=== PATIENT | male | born 1965 | race Caucasian/White ===

== ENCOUNTER 2020-10-16 07:33 | Observation (INO) | payer BC ==
[2020-10-16] MEDS ORDERED: Sodium Chloride 0.9% 10 ML Syringe FLUSH PRN (07:50)
[2020-10-16] MEDS ORDERED: Alum Hydrox/Mag Hydrox/Simeth 30 ML, Lidocaine 2% 15 ML PO ONE ×2 (08:00)
[2020-10-16] MEDS ORDERED: Aspirin 81 MG Tab.Chew PO ONE (08:02)
--- NOTE | 2020-10-16 08:10 | EDM.PDOC ---
ED HPI GENERAL MEDICAL PROBLEM - General Chief Complaint: Chest Pain Stated Complaint: CHEST PAIN Time Seen by Provider: 10/16/20 08:05 Source of Information: Reports: Patient History Limitations: Reports: No Limitations - History of Present Illness INITIAL COMMENTS - FREE TEXT/NARRATIVE: 55 YO WM PRESENTS TO ER COMPLAINING OF SUBSTERNAL CHEST PAIN WHICH BEGAN THIS AM. PT REPORTS HE WOKE THIS AM FEELING FINE BUT TOOK HIS MORNING MEDICATIONS AND DEVELOPED BURNING SENSATION AND CHEST PRESSURE. PT DENIES ASSOCIATED SHORTNESS OF BREATH, DIAPHORESIS,OR DIZZINESS. PT REPORTS FEELING NAUSEA BUT IT'S RELIEVED WITH BELCHING. PT WITH PMH OF HYPERTENSION, HYPERLIPIDEMIA AND OBESITY. PT WITH FAMILY HISTORY OF AMI (DAD AGE 57). PT DENIES EXERCISE INTOLERANCE. PT REPORTS DAILY ALCOHOL USE BUT DENIES TOBACCO USE. PT DENIES ANY KNOWN COVID EXPOSURES AND REPORTS HAVING COVID 11/2019. Onset: Today, Sudden Location: Reports: Chest Quality: Reports: Burning, Pressure Severity: Moderate Improves with: Reports: None Worsens with: Reports: None Associated Symptoms: Reports: No Other Symptoms, Chest Pain. Denies: Cough, Diaphoresis, Fever/Chills, Nausea/Vomiting, Shortness of Breath Middle Chest Pain Score (Numeric/FACES): 5 - Related Data Allergies Allergy/AdvReac Type Severity Reaction Status Date / Time lisinopril Allergy Cough Verified 10/16/20 08:01 Home Meds: Home Meds Aspirin [Aspirin EC] 81 mg PO DAILY 10/16/20 [History] Cetirizine [ZyrTEC] 10 mg PO DAILY 10/16/20 [History] Gabapentin [Neurontin] 600 mg PO TID 10/16/20 [History] Losartan Potassium [Cozaar] 100 mg PO DAILY 10/16/20 [History] Montelukast [Singulair] 10 mg PO BEDTIME 10/16/20 [History] Omeprazole 20 mg PO ACBREAKFAST 10/16/20 [History] Polyvinyl Alcohol/Povidone/Pf [Refresh Classic Eye Drops] 1 each EYEBOTH ASDIRECTED PRN 10/16/20 [History] Sertraline HCl [Zoloft] 50 mg PO DAILY 10/16/20 [History] Simvastatin [Zocor] 20 mg PO BEDTIME 10/16/20 [History] hydroCHLOROthiazide [Hydrochlorothiazide] 12.5 mg PO DAILY 10/16/20 [History] Social & Family History - Tobacco Use Tobacco Use Status *Q: Former Tobacco User Used Tobacco, but Quit: Yes Month/Year Tobacco Last Used: 04/19 - Caffeine Use Caffeine Use: Reports: Soda - Alcohol Use Days Per Week of Alcohol Use: 7 Number of Drinks Per Day: 3 Total Drinks Per Week: 21 - Recreational Drug Use Recreational Drug Use: No ED ROS GENERAL - Review of Systems Review Of Systems: See Below Constitutional: Reports: No Symptoms HEENT: Reports: No Symptoms Respiratory: Reports: No Symptoms Cardiovascular: Reports: Chest Pain, Blood Pressure Problem Endocrine: Reports: No Symptoms GI/Abdominal: Reports: No Symptoms, Nausea. Denies: Vomiting : Reports: No Symptoms Musculoskeletal: Reports: No Symptoms Skin: Reports: No Symptoms Neurological: Reports: No Symptoms Psychiatric: Reports: No Symptoms Hematologic/Lymphatic: Reports: No Symptoms Immunologic: Reports: No Symptoms ED EXAM, GENERAL - Physical Exam Exam: See Below Exam Limited By: No Limitations General Appearance: Alert, WD/WN, No Apparent Distress Head: Atraumatic, Normocephalic Neck: Normal Inspection, Supple, Non-Tender, Full Range of Motion Respiratory/Chest: No Respiratory Distress, Lungs Clear, Normal Breath Sounds, No Accessory Muscle Use, Chest Non-Tender Cardiovascular: Normal Peripheral Pulses, Regular Rate, Rhythm, No Edema, No Gallop, No JVD, No Murmur, No Rub GI/Abdominal: Normal Bowel Sounds, Soft, Non-Tender, No Organomegaly, No Distention, No Abnormal Bruit, No Mass Back Exam: Normal Inspection, Full Range of Motion, NT Extremities: Normal Inspection, Normal Range of Motion, Non-Tender, Normal Capillary Refill, No Pedal Edema Neurological: Alert, Oriented, CN II-XII Intact, Normal Cognition, Normal Gait, Normal Reflexes, No Motor/Sensory Deficits Psychiatric: Normal Affect, Normal Mood Skin Exam: Warm, Dry, Intact, Normal Color, No Rash #1 Interpretation EKG Date: 10/16/20 Time: 07:40 Rhythm: NSR Rate (Beats/Min): 81 [place]: Normal QRS: RBBB ST-T: Normal QT: Normal Comparison: NA - No Prior EKG Course - Vital Signs Last Recorded V/S: Last Vital Signs Temp 97.8 F 10/16/20 07:53 Pulse 79 10/16/20 08:30 Resp 16 10/16/20 08:30 BP 151/93 H 10/16/20 08:30 Pulse Ox 95 10/16/20 08:30 - Orders/Labs/Meds Orders: Active Orders 24 hr Category Date Time Status Peripheral IV Care [RC] . DIRECTED Care 10/16/20 07:53 Active Sodium Chloride 0.9% [Saline Flush] Med 10/16/20 07:50 Active 10 ml FLUSH Q8HR PRN Peripheral IV Insertion Adult [OM.PC] Routine Oth 10/16/20 07:50 Ordered Medication Orders Sodium Chloride (Sodium Chloride 0.9% 10 Ml Syringe) 10 ml FLUSH Q8HR PRN PRN Reason: keep vein open Last Admin: 10/16/20 07:40 Dose: 10 ml Documented by: JOSE JUAN Labs: Laboratory Tests 10/16/20 10/16/20 Range/Units 07:30 07:30 WBC 6.91 (5.00-10.00) 10^3/uL RBC 4.90 (4.50-6.00) 10^6/uL Hgb 14.5 (13.0-17.0) g/dL Hct 43.5 (40.0-52.0) % MCV 88.8 (82.0-92.0) fL MCH 29.6 (27.0-31.0) pg MCHC 33.3 (32.0-36.0) g/dL RDW 13.8 (11.5-14.5) % Plt Count 172 (150-400) 10^3/uL MPV 11.0 H (7.4-10.4) fL Immature Gran % (Auto) 1.0 (0.0-5.0) % Neut % (Auto) 65.3 (50.0-70.0) % Lymph % (Auto) 24.6 (20.0-40.0) % [place] % (Auto) 7.4 (2.0-8.0) % Eos % (Auto) 1.3 (1.0-3.0) % Baso % (Auto) 0.4 (0.0-1.0) % Neut # (Auto) 4.51 (2.50-7.00) 10^3/uL Lymph # (Auto) 1.70 (1.00-4.00) 10^3/uL [place] # (Auto) 0.51 (0.10-0.80) 10^3/uL Eos # (Auto) 0.09 L (0.10-0.30) 10^3/uL Baso # (Auto) 0.03 (0.00-0.10) 10^3/uL Immature Gran # (Auto) 0.07 (0.00-0.50) 10^3/uL Sodium 140 (136-145) mmol/L Potassium 3.6 (3.5-5.1) mmol/L Chloride 102 (98-107) mmol/L Carbon Dioxide 26.7 (21.0-32.0) mmol/L Anion Gap 14.9 (5-15) mmol/L BUN 13 (7-18) mg/dL Creatinine 0.95 (0.51-1.17) mg/dL Est Cr Clr Drug Dosing 96.95 mL/min Estimated GFR (MDRD) > 60 mL/min Glucose 100 (70-140) mg/dL Calcium 8.3 L (8.7-10.3) mg/dL Total Bilirubin 0.6 (0.2-1.0) mg/dL AST 28 (15-37) U/L ALT 49 (14-63) U/L Alkaline Phosphatase 66 (46-116) U/L Creatine Kinase 153 (26-276) U/L CK-MB (CK-2) 1.95 (0.00-3.60) ng/mL Troponin I High Sens 7.400 (0-76.000) pg/mL Total Protein 7.6 (6.4-8.2) g/dL Albumin 3.85 (3.40-5.00) g/dL Meds: Medications Generic Name Dose Route Start Last Admin Trade Name Freq PRN Reason Stop Dose Admin Sodium Chloride 10 ml 10/16/20 07:50 10/16/20 07:40 Sodium Chloride 0.9% 10 Ml Syringe FLUSH 10 ml Q8HR PRN Administration keep vein open Discontinued Medications Generic Name Dose Route Start Last Admin Trade Name Freq PRN Reason Stop Dose Admin Aspirin 324 mg 10/16/20 08:02 10/16/20 08:08 Aspirin 81 Mg Tab.Chew PO 10/16/20 08:03 324 mg ONETIME ONE Administration Al Hydroxide/Mg Hydroxide 30 0 ml 10/16/20 08:00 10/16/20 08:09 ml/ Lidocaine HCl 15 ml PO 10/16/20 08:01 45 ml ONETIME ONE Administration Nitroglycerin 1 gm 10/16/20 08:21 10/16/20 08:29 Nitroglycerin 2% Oint 1 Gm Ud Packet TOP 10/16/20 08:22 1 gm ONETIME ONE Administration - Radiology Interpretation Free Text/Narrative:: CXR-NAD; BORDERLINE CM, BIBASILAR ATELECTASIS Departure - Departure Time of Disposition: 09:31 Disposition: Refer to Observation Condition: Fair Clinical Impression: Chest pain Qualifiers: Chest pain type: unspecified Qualified Code(s): R07.9 - Chest pain, unspecified Referrals: Sabrina Douglas, [employer] [Primary Care Provider] - Forms: ED Department Discharge Sepsis Event Note (ED) - Evaluation Sepsis Screening Result: No Definite Risk - Focused Exam Vital Signs: Vital Signs Temp Pulse Resp BP Pulse Ox 10/16/20 08:30 79 16 151/93 H 95 10/16/20 08:15 82 16 140/88 93 L 10/16/20 08:00 88 18 150/92 H 93 L 10/16/20 07:53 97.8 F 83 23 H 148/92 H 96 10/16/20 07:45 82 16 149/89 H 96 10/16/20 07:43 97.8 F 83 23 H 148/92 H 96 - My Orders Last 24 Hours: My Active Orders 10/16/20 07:50 Sodium Chloride 0.9% [Saline Flush] 10 ml FLUSH Q8HR PRN Peripheral IV Insertion Adult [OM.PC] Routine 10/16/20 07:53 Peripheral IV Care [RC] . DIRECTED - Assessment/Plan Last 24 Hours: My Active Orders 10/16/20 07:50 Sodium Chloride 0.9% [Saline Flush] 10 ml FLUSH Q8HR PRN Peripheral IV Insertion Adult [OM.PC] Routine 10/16/20 07:53 Peripheral IV Care [RC] . DIRECTED Assessment:: 1. ATYPICAL CHEST PAIN Plan: 1. ADMIT TO MEDICINE ETHEL RUIZ ACCEPTING-OBSERVATION @0915 2. ASA/NITRO 3. SUPPORTIVE CARE 4. REPEAT TROP I Q6 X3
--- NOTE | 2020-10-16 08:14 | CR ---
[id number] RAD/RAD Chest PA or AP 1V EXAM: FRONTAL CHEST INDICATION: CHEST PAIN. COMPARISON: None. DISCUSSION: Borderline heart size without evidence of edema. Mild basilar atelectasis. No infiltrates are identified. No effusions. IMPRESSION: 1. Mild bibasilar atelectasis. Mario Plasencia MD 10/16/20 0877 Thank you for allowing us to participate in the care of your patient.
[2020-10-16] MEDS ORDERED: Nitroglycerin 2% Oint 1 GM UD Packet TOP ONE (08:21)
[2020-10-16 08:51] LABS: ANION GAP 14.9 mmol/L (5-15); CHLORIDE,CL 102 mmol/L (98-107); SODIUM,NA 140 mmol/L (136-145)
--- NOTE | 2020-10-16 11:40 | PCM.HP.2 ---
H&P History of Present Illness - General Date of Service: 10/16/20 Admit Problem/Dx: Admission Diagnosis/Problem Admission Diagnosis/Problem Chest pain Source of Information: Patient History Limitations: Reports: Other (lack of EMR from [facility]) Middle Chest Pain Score (Numeric/FACES): 5 - Related Data Allergies/Adverse Reactions: Allergies Allergy/AdvReac Type Severity Reaction Status Date / Time lisinopril Allergy Cough Verified 10/16/20 10:05 Home Medications: Home Meds Aspirin [Aspirin EC] 81 mg PO DAILY 10/16/20 [History] Cetirizine [ZyrTEC] 10 mg PO DAILY 10/16/20 [History] Gabapentin [Neurontin] 600 mg PO TID 10/16/20 [History] Losartan Potassium [Cozaar] 100 mg PO DAILY 10/16/20 [History] Montelukast [Singulair] 10 mg PO BEDTIME 10/16/20 [History] Omeprazole 20 mg PO ACBREAKFAST 10/16/20 [History] Polyvinyl Alcohol/Povidone/Pf [Refresh Classic Eye Drops] 1 each EYEBOTH ASDIRECTED PRN 10/16/20 [History] Sertraline HCl [Zoloft] 50 mg PO DAILY 10/16/20 [History] Simvastatin [Zocor] 20 mg PO BEDTIME 10/16/20 [History] hydroCHLOROthiazide [Hydrochlorothiazide] 12.5 mg PO DAILY 10/16/20 [History] Social & Family History - Tobacco Use Tobacco Use Status *Q: Former Tobacco User Used Tobacco, but Quit: Yes Month/Year Tobacco Last Used: 04/19 - Caffeine Use Caffeine Use: Reports: Soda - Alcohol Use Days Per Week of Alcohol Use: 7 Number of Drinks Per Day: 3 Total Drinks Per Week: 21 - Recreational Drug Use Recreational Drug Use: No H&P Review of Systems - Review of Systems: Review Of Systems: See Below General: Reports: No Symptoms HEENT: Reports: No Symptoms Pulmonary: Reports: No Symptoms Cardiovascular: Reports: No Symptoms Gastrointestinal: Reports: Other (epigastric burning, much improved. ). Denies: Abdominal Pain, Diarrhea, Difficulty Swallowing Genitourinary: Reports: No Symptoms Musculoskeletal: Reports: No Symptoms Skin: Reports: No Symptoms Psychiatric: Reports: No Symptoms Neurological: Reports: No Symptoms Hematologic/Lymphatic: Reports: No Symptoms Immunologic: Reports: No Symptoms Exam - Exam Exam: See Below - Vital Signs Vital Signs: Last Vital Signs Temp 97.8 F 10/16/20 07:53 Pulse 91 10/16/20 09:30 Resp 20 10/16/20 09:30 BP 129/74 10/16/20 09:30 Pulse Ox 91 L 10/16/20 09:30 Weight: 280 lb - Exam Quality Assessment: No: Supplemental Oxygen General: Alert, Oriented, 4 HEENT: PERRLA, Hearing Intact, Mucosa Moist & [place], Nares Patent, Normal Nasal Septum, Posterior Pharynx Clear, Conjunctiva Clear, EOMI, EACs Clear, TMs Clear Neck: Supple, Trachea Midline, 2 Lungs: Clear to Auscultation, Normal Respiratory Effort Cardiovascular: Regular Rate, Regular Rhythm GI/Abdominal Exam: Soft, Other (large body habitus) (Male) Exam: Deferred Back Exam: Normal Inspection Extremities: No: Pedal Edema Peripheral Pulses: 2+: Radial (L), Radial (R) Skin: Warm, Dry, Intact Neurological: Cranial Nerves Intact, Reflexes Equal Bilateral Neuro Extensive - Mental Status: Alert, Oriented x3, Normal Mood/Affect, Normal Cognition Neuro Extensive - Motor, Sensory, Reflexes: CN II-XII Intact, Normal Gait, Normal Reflexes Psychiatric: Alert, Normal Affect, Normal Mood - Patient Data Lab Results Last 24 hrs: Laboratory Results - last 24 hr 10/16/20 10/16/20 10/16/20 Range/Units 07:30 07:30 10:00 WBC 6.91 (5.00-10.00) 10^3/uL RBC 4.90 (4.50-6.00) 10^6/uL Hgb 14.5 (13.0-17.0) g/dL Hct 43.5 (40.0-52.0) % MCV 88.8 (82.0-92.0) fL MCH 29.6 (27.0-31.0) pg MCHC 33.3 (32.0-36.0) g/dL RDW 13.8 (11.5-14.5) % Plt Count 172 (150-400) 10^3/uL MPV 11.0 H (7.4-10.4) fL Immature Gran % (Auto) 1.0 (0.0-5.0) % Neut % (Auto) 65.3 (50.0-70.0) % Lymph % (Auto) 24.6 (20.0-40.0) % [place] % (Auto) 7.4 (2.0-8.0) % Eos % (Auto) 1.3 (1.0-3.0) % Baso % (Auto) 0.4 (0.0-1.0) % Neut # (Auto) 4.51 (2.50-7.00) 10^3/uL Lymph # (Auto) 1.70 (1.00-4.00) 10^3/uL [place] # (Auto) 0.51 (0.10-0.80) 10^3/uL Eos # (Auto) 0.09 L (0.10-0.30) 10^3/uL Baso # (Auto) 0.03 (0.00-0.10) 10^3/uL Immature Gran # (Auto) 0.07 (0.00-0.50) 10^3/uL Sodium 140 (136-145) mmol/L Potassium 3.6 (3.5-5.1) mmol/L Chloride 102 (98-107) mmol/L Carbon Dioxide 26.7 (21.0-32.0) mmol/L Anion Gap 14.9 (5-15) mmol/L BUN 13 (7-18) mg/dL Creatinine 0.95 (0.51-1.17) mg/dL Est Cr Clr Drug Dosing 96.95 mL/min Estimated GFR (MDRD) > 60 mL/min Glucose 100 (70-140) mg/dL Calcium 8.3 L (8.7-10.3) mg/dL Total Bilirubin 0.6 (0.2-1.0) mg/dL AST 28 (15-37) U/L ALT 49 (14-63) U/L Alkaline Phosphatase 66 (46-116) U/L Creatine Kinase 153 (26-276) U/L CK-MB (CK-2) 1.95 (0.00-3.60) ng/mL Troponin I High Sens 7.400 (0-76.000) pg/mL Total Protein 7.6 (6.4-8.2) g/dL Albumin 3.85 (3.40-5.00) g/dL SARS CoV-2 RNA Rapid KARTHIK Negative (NEGATIVE) Result Diagrams: 10/16/20 07:30 10/16/20 07:30 Sepsis Event Note - Evaluation Sepsis Screening Result: No Definite Risk - Focused Exam Vital Signs: Vital Signs Temp Pulse Resp BP Pulse Ox 10/16/20 09:30 91 20 129/74 91 L 10/16/20 09:15 86 20 131/75 90 L 10/16/20 09:00 84 18 130/86 93 L 10/16/20 08:45 85 23 H 138/87 94 L 10/16/20 08:30 79 16 151/93 H 95 10/16/20 08:15 82 16 140/88 93 L 10/16/20 08:00 88 18 150/92 H 93 L 10/16/20 07:53 97.8 F 83 23 H 148/92 H 96 10/16/20 07:45 82 16 149/89 H 96 10/16/20 07:43 97.8 F 83 23 H 148/92 H 96 Problem List Initiated/Reviewed/Updated: Yes Orders Last 24hrs: Active Orders 24 hr Category Date Time Status Patient Status Manage Transfer [TRANSFER] Routine ADT 10/16/20 09:34 Active Patient Status [ADT] Routine ADT 10/16/20 09:35 Active Oxygen Therapy [RC] PRN Care 10/16/20 09:35 Active Peripheral IV Care [RC] . DIRECTED Care 10/16/20 07:53 Active VTE/DVT Education [RC] PER UNIT ROUTINE Care 10/16/20 09:35 Active Vital Signs [RC] Q4H Care 10/16/20 09:35 Active Sodium Chloride 0.9% [Saline Flush] Med 10/16/20 07:50 Active 10 ml FLUSH Q8HR PRN Peripheral IV Insertion Adult [OM.PC] Routine Oth 10/16/20 07:50 Ordered Resuscitation Status Routine Resus Stat 10/16/20 09:35 Ordered Medication Orders Sodium Chloride (Sodium Chloride 0.9% 10 Ml Syringe) 10 ml FLUSH Q8HR PRN PRN Reason: keep vein open Last Admin: 10/16/20 07:40 Dose: 10 ml Documented by: JOSE JUAN Assessment/Plan Comment:: History of Present Illness Mr Gu in a 55 y/o that was admitted into OBS status for r/o UT after he came into ED with substernal c/p. He woke up this am in his normal state of health and took his am meds and note chest pressure with epigastic and throat burning sensation. No associated SOB, diaphoresis or dizziness however denoted nausea alleviated upon belching. With family of hx of UT in father at same age as patient along with other risk factors of CV dz he was admitted into tele status. ED course: GI cocktail--to improvemnt, Nitro with improvement, EKG although no ACS concerns, changes from older EKG include, Neg Trop Primary Hosp Problems --Atypical chest pain, r/o UT--low suspect --Suspect esophageal spasms CV risk factors Obesity HTN HLD Dispositon; --admit to OBS, tele, repeat cardiac biomarker at 1400 --With family hx of early cardiac dz it may be prudent to cont ASA as Primary prevention however without ability to determine ASCVD risk uncertain if >10% which is the threshold of likely patient benefit. Also I feel his sx GI related in which ASA may be culprit. Cont PPI and DC provider to determine in ongoing ASA therapy is warrented. --Discussed lifestyle modications, wt, bp, lipids etc. - Mortality Measure Prognosis:: Good
[2020-10-16] MEDS ORDERED: Carboxymethylcellulose Sodium 0.5% Ophth Soln 15 ML Bottle EYEBOTH PRN ×2 (12:31→12:45)
[2020-10-16] MEDS ORDERED: Gabapentin 300 MG Cap PO SCH (14:00)
--- NOTE | 2020-10-16 16:50 | PCM.DCSUM1 ---
Discharge Summary - Hospital Course Free Text/Narrative:: Date of admission: 10/16/20 Date of discharge: 10/16/20 Admission diagnoses: # Atypical chest pain, R/O [place] Discharge diagnoses: # Hypertension - continue HCTZ 25mg and losartan 100mg # Dyslipidemia - continue simvastatin 20mg PO daily # GERD - continue omeprazole 20mg PO daily # Peripheral neuropathy - continue gabapentin 600mg PO TID # Generalized anxiety disorder - sertraline 50mg PO daily # Obstructive sleep apnea # Obesity # Family history of heart disease - continue aspirin 81mg PO daily Hospital course: HPI: Mr Gu in a 55 y/o that is in the [facility] camping and woke up with substernal chest pain with epigastic and burning sensation in the throat. No associated SOB, diaphoresis or dizziness however patient experienced nausea alleviated upon belching. Patient has positive family history of [place] in his father at a similar age. Cardiac risk factors of HTN, HLD, obesity. ED course: Patient given a GI cocktail with improvement in symptoms, Nitro paste with improvement, EKG indicates incomplete RBBB, neg initial Trop. Patient was admitted to [facility] with telemetry, repeat troponin. 10/16/20: Patient feeling well, sitting up in the recliner in street clothes playing cards. Denies chest pain, shortness of breath, nausea. Headache resolving after removal of nitro paste. VSS. No changes in cardiac rhythm on telemetry. Troponin negative x 2, suspect GI etiology. No abnormalities noted on exam. Patient requesting to be discharged home. Discharge and follow-up recommendations: - Discharge to home per self care - New medications at discharge: No new medications. Continue current home medications - Follow-up with PCP at [facility] next week for hospitalization follow-up. - Discharge Data Discharge Date: 10/16/20 Discharge Disposition: Home, Self-Care 01 Condition: Good - Referral to Home Health Primary Care Physician: Sabrina Douglas NP - Patient Instructions Diet: Usual Diet as Tolerated Diet, Other: Avoid triggers for GERD Driving: May Drive Today Showering/Bathing: May Shower - Discharge Plan *PRESCRIPTION DRUG MONITORING PROGRAM REVIEWED*: Not Applicable *COPY OF PRESCRIPTION DRUG MONITORING REPORT IN PATIENT SOBIA: Not Applicable Home Medications: Home Meds Aspirin [Aspirin EC] 81 mg PO DAILY 10/16/20 [History] Cetirizine [ZyrTEC] 10 mg PO DAILY 10/16/20 [History] Gabapentin [Neurontin] 600 mg PO TID 10/16/20 [History] Losartan Potassium [Cozaar] 100 mg PO DAILY 10/16/20 [History] Montelukast [Singulair] 10 mg PO BEDTIME 10/16/20 [History] Omeprazole 20 mg PO ACBREAKFAST 10/16/20 [History] Polyvinyl Alcohol/Povidone/Pf [Refresh Classic Eye Drops] 1 each EYEBOTH ASDIRECTED PRN 10/16/20 [History] Sertraline HCl [Zoloft] 50 mg PO DAILY 10/16/20 [History] Simvastatin [Zocor] 20 mg PO BEDTIME 10/16/20 [History] hydroCHLOROthiazide [Hydrochlorothiazide] 12.5 mg PO DAILY 10/16/20 [History] Oxygen Therapy Mode: Room Air Referrals: Sabrina Douglas, [employer] [Primary Care Provider] - (Follow up with PCP at [facility] next week.) - Discharge Summary/Plan Comment DC Time >30 min.: Yes Total # of Minutes for Discharge Time: 35 - General Info Date of Service: 10/16/20 Functional Status: Reports: Pain Controlled, Tolerating Diet. Denies: New Symptoms - Review of Systems General: Reports: No Symptoms HEENT: Reports: No Symptoms Pulmonary: Reports: No Symptoms. Denies: Shortness of Breath Cardiovascular: Reports: No Symptoms. Denies: Chest Pain, Palpitations, Edema Gastrointestinal: Reports: No Symptoms. Denies: Nausea Genitourinary: Reports: No Symptoms Musculoskeletal: Reports: No Symptoms Skin: Reports: No Symptoms Neurological: Reports: No Symptoms Psychiatric: Reports: No Symptoms - Patient Data Vitals - Most Recent: Last Vital Signs Temp 98.4 F 10/16/20 15:00 Pulse 82 10/16/20 15:00 Resp 16 10/16/20 15:00 BP 109/62 10/16/20 15:00 Pulse Ox 96 10/16/20 15:00 Weight - Most Recent: 178 lb 14.4 oz I&O - Last 24 hours: Intake & Output 10/16/20 10/16/20 10/16/20 06:59 14:59 22:59 Intake Total 420 Balance 420 Lab Results - Last 24 hrs: Laboratory Results - last 24 hr 10/16/20 10/16/20 10/16/20 Range/Units 07:30 07:30 10:00 WBC 6.91 (5.00-10.00) 10^3/uL RBC 4.90 (4.50-6.00) 10^6/uL Hgb 14.5 (13.0-17.0) g/dL Hct 43.5 (40.0-52.0) % MCV 88.8 (82.0-92.0) fL MCH 29.6 (27.0-31.0) pg MCHC 33.3 (32.0-36.0) g/dL RDW 13.8 (11.5-14.5) % Plt Count 172 (150-400) 10^3/uL MPV 11.0 H (7.4-10.4) fL Immature Gran % (Auto) 1.0 (0.0-5.0) % Neut % (Auto) 65.3 (50.0-70.0) % Lymph % (Auto) 24.6 (20.0-40.0) % [place] % (Auto) 7.4 (2.0-8.0) % Eos % (Auto) 1.3 (1.0-3.0) % Baso % (Auto) 0.4 (0.0-1.0) % Neut # (Auto) 4.51 (2.50-7.00) 10^3/uL Lymph # (Auto) 1.70 (1.00-4.00) 10^3/uL [place] # (Auto) 0.51 (0.10-0.80) 10^3/uL Eos # (Auto) 0.09 L (0.10-0.30) 10^3/uL Baso # (Auto) 0.03 (0.00-0.10) 10^3/uL Immature Gran # (Auto) 0.07 (0.00-0.50) 10^3/uL Sodium 140 (136-145) mmol/L Potassium 3.6 (3.5-5.1) mmol/L Chloride 102 (98-107) mmol/L Carbon Dioxide 26.7 (21.0-32.0) mmol/L Anion Gap 14.9 (5-15) mmol/L BUN 13 (7-18) mg/dL Creatinine 0.95 (0.51-1.17) mg/dL Est Cr Clr Drug Dosing 96.95 mL/min Estimated GFR (MDRD) > 60 mL/min Glucose 100 (70-140) mg/dL Calcium 8.3 L (8.7-10.3) mg/dL Total Bilirubin 0.6 (0.2-1.0) mg/dL AST 28 (15-37) U/L ALT 49 (14-63) U/L Alkaline Phosphatase 66 (46-116) U/L Creatine Kinase 153 (26-276) U/L CK-MB (CK-2) 1.95 (0.00-3.60) ng/mL Troponin I High Sens 7.400 (0-76.000) pg/mL Total Protein 7.6 (6.4-8.2) g/dL Albumin 3.85 (3.40-5.00) g/dL SARS CoV-2 RNA Rapid KARTHIK Negative (NEGATIVE) 10/16/20 Range/Units 14:00 WBC (5.00-10.00) 10^3/uL RBC (4.50-6.00) 10^6/uL Hgb (13.0-17.0) g/dL Hct (40.0-52.0) % MCV (82.0-92.0) fL MCH (27.0-31.0) pg MCHC (32.0-36.0) g/dL RDW (11.5-14.5) % Plt Count (150-400) 10^3/uL MPV (7.4-10.4) fL Immature Gran % (Auto) (0.0-5.0) % Neut % (Auto) (50.0-70.0) % Lymph % (Auto) (20.0-40.0) % [place] % (Auto) (2.0-8.0) % Eos % (Auto) (1.0-3.0) % Baso % (Auto) (0.0-1.0) % Neut # (Auto) (2.50-7.00) 10^3/uL Lymph # (Auto) (1.00-4.00) 10^3/uL [place] # (Auto) (0.10-0.80) 10^3/uL Eos # (Auto) (0.10-0.30) 10^3/uL Baso # (Auto) (0.00-0.10) 10^3/uL Immature Gran # (Auto) (0.00-0.50) 10^3/uL Sodium (136-145) mmol/L Potassium (3.5-5.1) mmol/L Chloride (98-107) mmol/L Carbon Dioxide (21.0-32.0) mmol/L Anion Gap (5-15) mmol/L BUN (7-18) mg/dL Creatinine (0.51-1.17) mg/dL Est Cr Clr Drug Dosing mL/min Estimated GFR (MDRD) mL/min Glucose (70-140) mg/dL Calcium (8.7-10.3) mg/dL Total Bilirubin (0.2-1.0) mg/dL AST (15-37) U/L ALT (14-63) U/L Alkaline Phosphatase (46-116) U/L Creatine Kinase (26-276) U/L CK-MB (CK-2) (0.00-3.60) ng/mL Troponin I High Sens < 4.000 (0-76.000) pg/mL Total Protein (6.4-8.2) g/dL Albumin (3.40-5.00) g/dL SARS CoV-2 RNA Rapid KARTHIK (NEGATIVE) Med Orders - Current: Current Medications Artificial Tears (Carboxymethylcellulose Sodium 0.5% Ophth Soln 15 Ml Bottle) 0 ml EYEBOTH Q2H PRN PRN Reason: Dry Eyes Aspirin (Aspirin 81 Mg Tab.Ec) 81 mg PO DAILY [facility] Cetirizine HCl (Cetirizine 10 Mg Tab) 10 mg PO DAILY [facility] Gabapentin (Gabapentin 300 Mg Cap) 600 mg PO TID [facility] Last Admin: 10/16/20 15:20 Dose: 600 mg Documented by: Hydrochlorothiazide (Hydrochlorothiazide 12.5 Mg Cap) 12.5 mg PO DAILY [facility] Losartan Potassium (Losartan 50 Mg Tab) 100 mg PO DAILY [facility] Montelukast Sodium (Montelukast 10 Mg Tab) 10 mg PO BEDTIME [facility] Omeprazole (Omeprazole 20 Mg Cap.Cr) 20 mg PO ACBREAKFAST [facility] Sertraline HCl (Sertraline 50 Mg Tab) 50 mg PO DAILY [facility] Simvastatin (Simvastatin 20 Mg Tab) 20 mg PO BEDTIME [facility] Discontinued Medications Artificial Tears (Carboxymethylcellulose Sodium 0.5% Ophth Soln 15 Ml Bottle) 0 ml EYEBOTH ASDIRECTED PRN PRN Reason: Dry Eyes Aspirin (Aspirin 81 Mg Tab.Chew) 324 mg PO ONETIME ONE Stop: 10/16/20 08:03 Last Admin: 10/16/20 08:08 Dose: 324 mg Documented by: Al Hydroxide/Mg Hydroxide 30 (ml/ Lidocaine HCl 15 ml) 0 ml PO ONETIME ONE Stop: 10/16/20 08:01 Last Admin: 10/16/20 08:09 Dose: 45 ml Documented by: Nitroglycerin (Nitroglycerin 2% Oint 1 Gm Ud Packet) 1 gm TOP ONETIME ONE Stop: 10/16/20 08:22 Last Admin: 10/16/20 08:29 Dose: 1 gm Documented by: Sodium Chloride (Sodium Chloride 0.9% 10 Ml Syringe) 10 ml FLUSH Q8HR PRN PRN Reason: keep vein open Last Admin: 10/16/20 07:40 Dose: 10 ml Documented by: - Exam Quality Assessment: Denies: Supplemental Oxygen General: Reports: Alert, Oriented, Cooperative HEENT: Reports: Pupils Equal, Pupils Reactive, EOMI, Mucous Membr. Moist/[place] Neck: Reports: Supple Lungs: Reports: Clear to Auscultation, Normal Respiratory Effort (70) Cardiovascular: Reports: Regular Rate, Regular Rhythm, No Murmurs GI/Abdominal Exam: Normal Bowel Sounds (Male) Exam: Deferred Back Exam: Reports: Full Range of Motion Extremities: Normal Inspection, No Pedal Edema Skin: Reports: Warm, Dry, Intact Neurological: Reports: No New Focal Deficit Psy/Mental Status: Reports: Alert, Normal Affect, Normal Mood
[2020-10-16] MEDS ORDERED: Montelukast 10 MG Tab PO SCH (21:00)
[2020-10-16] MEDS ORDERED: Simvastatin 20 MG Tab PO SCH (21:00)
[2020-10-17] MEDS ORDERED: Omeprazole 20 MG Cap.CR PO SCH (07:30)
[2020-10-17] MEDS ORDERED: Cetirizine 10 MG Tab PO SCH (09:00)
[2020-10-17] MEDS ORDERED: Sertraline 50 MG Tab PO SCH (09:00)
[2020-10-17] MEDS ORDERED: Aspirin 81 MG Tab.EC PO SCH (09:00)
[2020-10-17] MEDS ORDERED: Hydrochlorothiazide 12.5 MG Cap PO SCH (09:00)
[2020-10-17] MEDS ORDERED: Losartan 50 MG Tab PO SCH (09:00)
== END 2020-10-16 16:51 | disposition home or self-care (01) ==
LOC: KA.ED 07:33 → KA.MS 09:34
PROVIDERS: ADMIT Physician Assistant Medical; ATTEND Nurse Practitioner Family
DX: R07.89 Other chest pain (principal); I10 Essential (primary) hypertension; E78.5 Hyperlipidemia, unspecified; K21.9 Gastro-esophageal reflux disease without esophagitis; G62.9 Polyneuropathy, unspecified; F41.1 Generalized anxiety disorder; G47.33 Obstructive sleep apnea (adult) (pediatric); E66.9 Obesity, unspecified; Z79.82 Long term (current) use of aspirin; Z79.899 Other long term (current) drug therapy; Z87.891 Personal history of nicotine dependence; Z20.822 Contact with and (suspected) exposure to COVID-19
CPT/HCPCS: 36415; 71045; 80053; 82550; 82553; 84484; 85025; 93005; 99284; 99285-25; A9270-GY; G0378; U0002